=== PATIENT | male | born 1975 | race Hispanic/Latino ===

== ENCOUNTER 2017-05-07 11:14 | Emergency (ER) | payer OTHER ==
[2017-05-07 11:20] VITALS: TEMP 98
[2017-05-07] MEDS ORDERED: Silver Sulfadiazine 1% Cream (20 gm) TOP STA (12:06)
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
[2017-05-07 12:32] VITALS: BP 142/78; PULSE 82; RESP 17; O2SAT 98
== END 2017-05-07 12:33 | disposition home or self-care (01) ==
LOC: C.ER 11:14
DX: T25.122A Burn of first degree of left foot, initial encounter (principal); X11.8XXA Contact with other hot tap-water, initial encounter; Y92.89 Other specified places as the place of occurrence of the external cause; Y99.0 Civilian activity done for income or pay